=== PATIENT | male | born 1970 ===

== ENCOUNTER 2024-05-01 05:45 | Day surgery (SDC) | payer OTHER ==
[~2024-05-01 05:45] MED LIST: CRESTOR40 MG PO
[2024-05-01] MEDS ORDERED: CEFAZOLIN SODIUM 1,000 MG VIAL IV ONE (08:40)
[2024-05-01] MEDS ORDERED: ISOPROPYL ALCOHOL 30 ML OUNCE TOP ONE (09:15)
[2024-05-01] MEDS ORDERED: BUPIVACAINE HCL 30 ML VIAL IJ ONE (09:20)
== END 2024-05-01 11:00 | disposition home or self-care (01) ==
LOC: CIR.AMB 05:45
PROVIDERS: ATTEND Orthopaedic Surgery Hand Surgery
DX: M65.321 Trigger finger, right index finger (principal); Z88.8 Allergy status to other drugs, medicaments and biological substances; I10 Essential (primary) hypertension; K57.92 Diverticulitis of intestine, part unspecified, without perforation or abscess without bleeding